=== PATIENT | male | born 1935 | race African-American/Black ===

== ENCOUNTER 2017-02-08 12:48 | Emergency (ER) | payer MEDICARE ==
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
--- NOTE | ~2017-02-08 | EKG ---
PATIENT: EDINSON FUENTES UNIT #: [id number] Ventricular Rate: 64 BPM Atrial Rate: 64 BPM P-R Interval: 146 ms QRS Duration: 82 ms Q-T Interval: 422 ms QTC Calculation(Bezet): 435 ms P [place]: 69 degrees Calculated R [place]: 1 degrees Calculated T [place]: 52 degrees Diagnosis Line: Normal sinus rhythm Diagnosis Line: Nonspecific ST abnormality Normal ECG Diagnosis Line: No previous ECGs available Diagnosis Line: Confirmed by MINERVA RAI MD ([id number]) on 02/08/2017 Diagnosis Line: 4:43:15 PM INTERPRETING MD: FREDI SEVILLA
--- NOTE | ~2017-02-08 | CR72 ---
[facility] A Service of [facility] RADIOLOGY TEXT RESULTS PATIENT: EDINSON FUENTES LOCATION: [facility] : [birth year] UNIT #: [id number] AGE: [address]: Charly Rivera MD SEX: M ORDER DR: [id number] [facility] [address] [place], [place] [address] [id number] E MR#: [id number] Acc #: [id number] NAME: EDINSON FUENTES : 1935 SEX: M STUDY DATE/TIME: 02/08/2017 12:40 UNIT: FABY ROOM: STUDY DESCRIPTION: CR Chest Single View Portable Attending Physician: Charly Rivera M.D. Ordering Physician: Heaven Jane M.D. Primary Care Physician: Galina Peters M.D. MEDICAL IMAGING REPORT This report is preliminary unless electronic signature is present EXAM Portable chest radiograph. INDICATION Shortness of breath starting a week ago. FINDINGS Comparison is made to prior study from October 27, 2016. There is stable cardiomegaly and tortuosity of the thoracic aorta when compared to the exam from October 27, 2016. There is no evidence of vascular congestion. No pneumothorax is identified. There is some blunting of the left costophrenic angle. This could reflect some atelectasis or trace effusion or even some scarring. There does appear to be some mild left basilar atelectasis. No definite infiltrates are seen. Advanced degenerative changes involving the AC joints and right shoulder are noted. Dictated by... Luh Hughes M.D. THIS IS AN ELECTRONICALLY VERIFIED REPORT Luh Hughes M.D. at 02/08/2017 4:53 PM AFF/tmw TD: 02/08/2017 13:49 JOB #: [id number] MEDICAL IMAGING REPORT Page 1 of 1 COPY
[2017-02-08 12:55] LABS: POC - TROPONIN <0.05 ng/mL (<=0.05)
[2017-02-08 13:08] LABS: BASOPHIL% 0.6 % (0-2.5); EOSINOPHIL# 0.1 X10e3 (0-0.7); HEMATOCRIT 32.6 % (38.0-50.0); HEMOGLOBIN 10.5 gm/dL (13.0-16.0); LYMPHOCYTE# 0.6 X10e3 (1.0-3.5); LYMPHOCYTE% 8.4 % (17.0-45.0); MEAN CELL VOLUME 82.8 FL (83-96); MEAN CORPUSCULAR HEMOGLOBIN 26.6 PG (28-34); MEAN CORPUSCULAR HGB CONC 32.2 g/dL (30-36); MEAN PLATELET VOLUME 8.7 FL (6.5-11.5); MONOCYTE# 0.8 X10e3 (0-1.0); MONOCYTE% 11.6 % (3.0-12.0); NEUTROPHIL# 5.6 X10e3 (1.5-7.1); NEUTROPHIL% 78.4 % (40-75); PLATELET COUNT 236 X10e3 (140-420); RED BLOOD COUNT 3.94 X10e (3.90-5.60); RED CELL DISTRIBUTION WIDTH 15.4 % (11.0-15.5); WHITE BLOOD COUNT 7.2 X10e3 (4.0-10.5)
[2017-02-08 13:12] LABS: DIFF IND NO
[2017-02-08 13:36] LABS: ALBUMIN SERUM 3.5 g/dL (3.5-5.0); BILIRUBIN, DIRECT 0.1 mg/dL (0.0-0.2); BILIRUBIN,INDIRECT 0.5 mg/dL (0.0-0.9); BILIRUBIN,TOTAL 0.6 mg/dL (0.2-2.0); BUN/CREATININE RATIO 10.43; CALCIUM SERUM 8.6 mg/dL (8.4-10.2); CREATININE SERUM 2.3 mg/dL (0.6-1.4); GLOM FILT RATE Estimated 29.6 mL/min (>60); POTASSIUM 4.1 mmol/L (3.5-5.1)
== END 2017-02-08 15:30 | disposition home or self-care (01) ==
LOC: CED 12:48
PROVIDERS: Emergency Medicine
DX: S09.90XA Unspecified injury of head, initial encounter (principal); I10 Essential (primary) hypertension; E11.9 Type 2 diabetes mellitus without complications; F17.200 Nicotine dependence, unspecified, uncomplicated; Z98.890 Other specified postprocedural states; X58.XXXA Exposure to other specified factors, initial encounter; Y92.9 Unspecified place or not applicable; V89.2XXA Person injured in unspecified motor-vehicle accident, traffic, initial encounter; Y92.410 Unspecified street and highway as the place of occurrence of the external cause
CPT/HCPCS: 36415; 70450; 71010; 80048; 80076; 82553; 84484; 85025; 93005; 96374; 99284; J1885